=== PATIENT | female | born 1990 | race Caucasian/White ===

== ENCOUNTER 2017-01-14 12:08 | Emergency (ER) | payer BC ==
[~2017-01-14] VITALS: Ht 157.5 cm; Wt 59.1 kg
[2017-01-14 12:10] VITALS: Ht 157.5 cm; Wt 59.1 kg
[2017-01-14] MEDS ORDERED: ALPRAZOLAM 0.25 MG TAB PO ONE (12:30)
[2017-01-14] MEDS ORDERED: QUET200T PO (12:35)
--- NOTE | 2017-01-24 05:18 | ERD ---
ER Documentation Chief Complaint Date/Time DATE: 01/14/17 TIME: 12:00 Chief Complaint bilat arm numbness and shakiness x 30 minutes HPI 26-year-old woman with history of anxiety complains of full body paresthesias including the upper arms bilaterally. She states she has a history of anxiety and her symptoms feel similar to previous episodes. She states while in the ED her symptoms did improve somewhat. She denies suicidal homicidal ideation, no fevers or chills, no chest pain or back pain, no shortness of breath, no headache or blurry vision, no trauma, no vomiting or diarrhea. ROS All systems reviewed and are negative except as per history of present illness. Medications Home Meds Reported Medications Quetiapine Fumarate* (Seroquel*) 200 Mg Tablet, 200 MG PO HS, #30 TAB 01/14/17 Allergies Allergies: Coded Allergies: No Known Allergy (Unverified , 01/14/17) PMhx/Soc History of Surgery: No Anesthesia Reaction: No Hx Neurological Disorder: No Hx Respiratory Disorders: No Hx Cardiac Disorders: No Hx Miscellaneous Medical Probl: No Hx Alcohol Use: No Hx Substance Use: No Hx Tobacco Use: Yes Smoking Status: Current some day smoker FmHx Family History: No diabetes Physical Exam Vitals Vital signs per nursing chart which I reviewed Physical Exam GENERAL: Well-developed, well-nourished, anxious HEENT: Moist mucous membranes, pink conjunctiva, no cervical spine tenderness or step-off deformities, no goiter, no jaundice or icterus, extraocular movements intact without pain. No submandibular induration, and no pharyngeal erythema NEURO: Alert and oriented 3, cranial nerves II through XII intact bilaterally, pupils equal round reactive to light, no focal deficits or facial asymmetry, sensation intact distally Strength 5/5 in upper and lower extremities bilaterally CARDIAC: Regular rate and rhythm, no murmurs rubs or gallops LUNGS: Clear bilaterally no wheezing crackles or stridor ABDOMEN: Soft nontender, no guarding, no rigidity, no rebound, no psoas sign no obturator sign. Normoactive bowel sounds SKIN: Warm and dry to touch, no abrasions, contusions, or hematomas, no lacerations, no ecchymosis, no target lesions, and without ulcers EXTREMITIES: No clubbing cyanosis or edema, calves are bilaterally symmetrical, no Homans sign, no popliteal cord sign. Distal pulses equal and bilateral PSYCH: Anxious Results 24 hrs Current Medications Medications (Trade) Dose Ordered Sig/Cecil Route PRN Reason Start Time Stop Time Status Last Admin Dose Admin Alprazolam (Xanax) 0.5 mg ONCE ONCE PO 01/14/17 12:30 01/14/17 12:31 DC 01/14/17 12:53 Procedures/MDM I administered alprazolam 0.5 mg p.o. for her symptoms. Reassurance was provided and patient felt much better. Patient feels much better at this time, and vital signs are normal, symptoms have improved. I did give strict instructions to return to the ED if symptoms continue or worsen, patient will otherwise follow-up with primary care physician. Patient understood instructions and agreed to plan. Disclaimer: Inadvertent spelling and grammatical errors are likely due to EHR/ dictation software use and do not reflect on the overall quality of patient care. Also, please note that the electronic time recorded on this note does not necessarily reflect the actual time of the patient encounter. Departure Diagnosis: Primary Impression: Anxiety attack Condition: Good Patient Instructions: Anxiety Reaction JULIETA DE LA CRUZ MD Jan 24, 2017 05:18
== END 2017-01-14 13:33 | disposition home or self-care (01) ==
LOC: E/R 12:08
DX: F41.9 Anxiety disorder, unspecified (principal); F17.210 Nicotine dependence, cigarettes, uncomplicated
CPT/HCPCS: 99283